=== PATIENT | female | born 1985 | race Caucasian/White ===

== ENCOUNTER 2019-05-14 08:36 | Outpatient (CLI) | payer BC, SELFPAY ==
--- NOTE | 2019-05-14 08:44 | MM_ITS ---
WS: [id number] DIAGNOSTIC BILATERAL DIGITAL MAMMOGRAM WITH CAD LEFT breast ultrasound, limited HISTORY: N64.4MASTODYNIA;N63.20LT BREAST LUMP;N61.0MASTITIS W/O abscess COMPARISON: None available. TECHNIQUE: Bilateral craniocaudad, mediolateral oblique, and mediolateral views are submitted. Spot c ompression LEFT MLO. Computer aided detection utilized. Breast composition: There are scattered areas of fibroglandular density. Palpable marker is placed ov er the upper outer quadrant of the LEFT breast at a middle depth. No mass or calcification or distort ion noted within either breast. No thickening of the skin. LEFT breast ultrasound, limited. Ultrasound is directed to the 2:00 axis of the LEFT breast at the palpable site. There is no underlyi ng mass. No cyst or distortion. No skin thickening. MM/[place] [id number] IMPRESSION: BI-RADS: 1-Negative FOLLOW UP: 1 Year Follow-up
== END 2019-05-14 08:37 | disposition home or self-care (01) ==
LOC: RADSHAW 08:39
PROVIDERS: Family Provider Family Medicine; PCP Family Medicine; Visit Provider Family Medicine
DX: N63.21 Unspecified lump in the left breast, upper outer quadrant (principal); N64.4 Mastodynia; N61.0 Mastitis without abscess
CPT/HCPCS: 76642; 77066

== ENCOUNTER 2024-06-10 15:54 | Outpatient (CLI) | payer OTHER, SELFPAY ==
--- NOTE | 2024-06-10 15:58 | MM_ITS ---
WS: [id number] BILATERAL 3D TOMOSYNTHESIS DIGITAL SCREENING MAMMOGRAPHY WITH CAD CLINICAL INFORMATION: SCREENING HISTORY: Screening mammogram. No current complaints. COMPARISON: 2020 TECHNIQUE: Bilateral CC and MLO views. FINDINGS: Scattered fibroglandular densities bilaterally. No suspicious focal mass, asymmetry, calcifications, or architectural distortion. No evidence of malignancy. MM/MM scr BI tomosynthesis [id number] IMPRESSION: DENSITY: The breasts are almost entirely fatty. BI-RADS: 1 - Negative. FOLLOW UP: 1 Year Follow-up Recommend return to annual screening mammography.
== END 2024-06-10 15:55 | disposition home or self-care (01) ==
PROVIDERS: PCP Family Medicine; Visit Provider Family Medicine
DX: Z12.31 Encounter for screening mammogram for malignant neoplasm of breast (principal); R92.313 Mammographic fatty tissue density, bilateral breasts
CPT/HCPCS: 77063; 77067